=== PATIENT | female | born 1990 | race Caucasian/White ===

== ENCOUNTER 2021-07-03 07:29 | Emergency (ER) | payer SELFPAY ==
[2021-07-03] MEDS ORDERED: Ondansetron PF 4 MG/2 ML Vial ONE ×2 (08:45→11:28)
[2021-07-03] MEDS ORDERED: Ketorolac Tromethamine 30 MG/ML VIAL ONE (08:45)
[2021-07-03] MEDS ORDERED: Sodium Chloride 0.9% 1,000 ML ONE ×2 (08:45→11:33)
[2021-07-03 09:03] LABS: BHCG - Serum Negative (NEGATIVE); Pregs Control Background? CLEAR/WHITE (CLR/WHITE); Pregs Control Bar Appear? YES (CONTROL BAR)
[2021-07-03 09:10] LABS: Red Blood Cell (RBC) Count 4.53 mill/uL (4.20-5.40); White Blood Cell (WBC) Count 10.3 thou/uL (4.8-10.8)
[2021-07-03 09:11] LABS: #Lymphocytes 2.8 thou/uL (1.20-3.40); #Neutrophils 6.8 thou/uL (1.40-6.50); %Basophils 0.7 % (0.0-1.0); %Eosinophils 1.8 % (0.0-10.0); %Lymphocytes 26.9 % (21.0-51.0); %Monocytes 4.7 % (0.0-10.0); %Neutrophils 65.9 % (42.0-75.0); ALT (SGPT) 20 U/L (8-55); AST (SGOT) 16 U/L (5-34); Albumin 4.2 g/dL (3.5-5.0); Alkaline Phosphatase 47 U/L (40-110); Anion Gap 11 mmol/L (10-20); BUN (Urea Nitrogen) 7 mg/dL (7.0-18.7); Bilirubin, Total 0.2 mg/dL (0.2-1.2); Calc. Creatinine Clearance 0 mL/min (70-130); Calcium 9.8 mg/dL (7.8-10.44); Carbon Dioxide 27 mmol/L (22-29); Chloride 107 mmol/L (98-107); Globulin 2.6 g/dL (2.4-3.5); Glucose 78 mg/dL (70-105); Hemoglobin 13.9 g/dL (12.0-16.0); Lipase 25 U/L (8-78); Magnesium 1.9 mg/dL (1.6-2.6); Mean Corpuscular HGB CONC 32.9 g/dL (32.0-36.0); Mean Corpuscular Hemoglobin 30.7 pg (27.0-31.0); Mean Corpuscular Volume 93.3 fL (78.0-98.0); Mean Platelet Volume 6.5 fL (7.4-10.4); Platelet Count 345 thou/uL (130-400); Potassium 3.8 mmol/L (3.5-5.1); Protein, Total 6.8 g/dL (6.0-8.3); Sodium 141 mmol/L (136-145)
[2021-07-03 09:12] LABS: #Basophils 0.1 thou/uL (0.0-0.2); #Eosinphils 0.2 thou/uL (0.0-0.7); #Monocytes 0.5 thou/uL (0.11-0.59)
[2021-07-03] MEDS ORDERED: Morphine 4 MG/ML VIAL ONE (11:24)
[2021-07-03 11:31] LABS: SARS-CoV-2 NAA Rapid Test Not Detected (NotDetected)
[2021-07-03] MEDS ORDERED: Iopamidol 370 76% 100 ML VIAL ONE (15:30)
== END 2021-07-03 12:00 | disposition short-term general hospital (02) ==
LOC: MADERS 07:29
DX: K80.20 Calculus of gallbladder without cholecystitis without obstruction (principal); F17.210 Nicotine dependence, cigarettes, uncomplicated; Z20.822 Contact with and (suspected) exposure to COVID-19
CPT/HCPCS: 74177; 76705; 80053; 83690; 83735; 84703; 85025; 93005; 96374; 96375; 96376; J1885; J2270; J2405; J7050; Q9967; U0002